=== PATIENT | male | born 1965 | race American Indian/Alaskan Native ===

== ENCOUNTER 2017-04-18 06:22 | Day surgery (SDC) | payer OTHER ==
[2016-11-27 07:20] VITALS: BMI 32.8
[2017-04-18] MEDS ORDERED: Propofol 10 mg/ml Inj (20 ML) ONE (07:21)
[2017-04-18] MEDS ORDERED: Succinylcholine 200 mg/10 ml Inj IV ONE (07:22)
[2017-04-18] MEDS ORDERED: Lidocaine 1% Inj (20ml) ONE (07:22)
[2017-04-18] MEDS ORDERED: Rocuronium 10 mg/ml (5 ml) ONE (07:22)
[2017-04-18] MEDS ORDERED: Neostigmine Methylsulfate 3mg/3ml Syringe IV ONE (07:22)
[2017-04-18] MEDS ORDERED: Sevoflurane - Inhalation Anesthetic Liq (250 ml) ONE (07:23)
[2017-04-18] MEDS ORDERED: Bupivacaine 0.5% Inj(30mL) ONE (07:24)
[2017-04-18] MEDS ORDERED: Iohexol 240 (50 ml) ONE (07:24)
[2017-04-18] MEDS ORDERED: Lactated Ringer's 1,000 ML IV SCH (09:44)
[2017-04-18] MEDS ORDERED: HYDROmorphone 0.5 mg/0.5 ml ISec IVP PRN (09:44)
--- NOTE | 2017-04-18 09:51 | PCM.SURG1 ---
Surgeon's Initial Post Op Note - Surgeon's Notes Surgeon: Carmine Judo Teacher: PGY3 Type of Anesthesia: General Endo Pre-Operative Diagnosis: Cholecystitis Operative Findings: see op note Post-Operative Diagnosis: Cholecystitis Operation Performed: Laparoscopic cholecystectomy with IOC Specimen/Specimens Removed: gallbladder Estimated Blood Loss: EBL {In ML}: 5 Blood Products Given: N/A Drains Used: No Drains Post-Op Condition: Good Date of Surgery/Procedure: 04/18/17 Time of Surgery/Procedure: 07:50
[2017-04-18] MEDS ORDERED: Oxycodone/Acetaminophen 5/325 mg Tab PO ONE (09:52)
[2017-04-18] MEDS ORDERED: HYDROmorphone 0.5 mg/0.5 ml ISec ONE ×3 (10:07→10:48)
[2017-04-18] MEDS ORDERED: HYDROmorphone 0.5 mg/0.5 ml ISec IVP ONE ×2 (10:30→10:55)
[2017-04-18 11:40] VITALS: RESP 18; TEMP 98.3; O2SAT 95
[2017-04-18 13:38] VITALS: BP 130/73; PULSE 69
--- NOTE | 2017-04-18 15:42 | RAD ---
PROCEDURE: Operative cholangiogram HISTORY: R/O STONES COMPARISON: TECHNIQUE: Fluoroscopy was provided in the operating room. 6 seconds of fluoroscopy time were utilized. Two images were submitted FINDINGS: Common duct is normal in caliber with no filling defects. Contrast flows into the duodenum without obstruction IMPRESSION: As above
--- NOTE | 2017-04-23 07:41 | OP ---
PROCEDURE DATE: 04/18/2017 SURGEON: Camacho Lou M.D. CARVER HAND: Gualberto Padron DO, PGY-2 ROD FINISHER: Dr. Miller ANESTHESIA: General endotracheal -- Marcaine 0.5-18 mL. PREOPERATIVE DIAGNOSES: Cholecystitis-cholelithiasis. POSTOPERATIVE DIAGNOSES: Cholecystitis-cholelithiasis. PROCEDURES: 04/18/2017: 1. Laparoscopic cholecystectomy. 2. Intraoperative cholangiogram. OPERATIVE INDICATION: The patient is a 51-year-old male with recurring biliary attacks, so nographically confirmed stones, referred by Dr. Richard for surgical intervention and describing the risks, the benefits and the alternatives to the patient, he signs the informed consent for a same day surgical procedure. OPERATIVE NOTE: The patient is brought from the holding area to the operating room, undergoes timeou t procedure, and is identified by his wrist band. He is placed on the table in a supine manner, unde rgoes the induction of general anesthesia and the insertion of an endotracheal tube. The abdomen is electrically clipped, prepped with Hibiclens chlorhexidine preparation and aseptically draped. At th is time, the legs are covered with sequential compression devices. The umbilicus is elevated on towel clips, infiltrated with bupivacaine as are all port sites, incisio n made and a Veress needle inserted into the peritoneal cavity and the abdomen insufflated with carbo n dioxide gas to 14 mmHg pressure. The 12 mm port is placed through the site and the Storz operating laparoscope inserted and the abdome n explored. Under direct vision, a 12 mm port is placed in the right subxiphoid location and two [address] d in the right upper quadrant at the level of the umbilicus. The patient is rotated to a reverse Laron ndelenburg position and left lateral Mars rotation. The gallbladder is grasped with Prestige clamps. The summer hepatis is dissected free. The cystic ar brenda and cystic duct are identified. The critical view of safety is then visualized and the cystic d uct is doubly hemoclipped, incised and intraoperative cholangiography performed. Free flow of contra st is seen through the catheter into the duodenum without evidence of stone or obstruction. The catheter is removed. The duct is doubly hemoclipped and transected, and the cystic artery likewi se. The gallbladder is now removed from the liver bed in a prograde fashion utilizing electrocoagulating cautery and placed in an EndoCatch, brought out through the subxiphoid port site. The content is now cultured aerobically and anaerobically and submitted itself in formalin for permanent section analys is. The patient is placed level supine. The right upper quadrant is lavaged with normal saline solution until the return is noted to be clear and hemostasis is confirmed. Using the exit closure device and 2-0 PDS sutures, the midline port sites are closed and the skin cristobal sed with subcuticular 4-0 Biosyn and Steri-Strips. A dry dressing is applied. The patient is awakened, extubated and transported to the recovery room i n a satisfactory condition. Sponge, instrument and suture count were verified as correct at the end of the procedure. Estimated blood loss during this procedure was less than 10 mL of blood. The surgical first assistant was absolutely important throughout the entire procedure exposing and helping in the dissection of the entire procedure. This dictation will be electronically signed without being read. Camacho Lou MD cc: [id number] TT: 04/23/2017 07:41:17 en
== END 2017-04-18 13:45 | disposition home or self-care (01) ==
LOC: SDS 06:22
PROVIDERS: ATTEND Surgery
DX: K80.10 Calculus of gallbladder with chronic cholecystitis without obstruction (principal)
CPT/HCPCS: 36415; 47563; 74300; 86850; 86900; 87070; 87075; 88304; J0330; J0690; J1170; J1885; J2405; J2704; J2710; J3010; J7120 ×2; Q9966